=== PATIENT | female | born 1995 | race Caucasian/White ===

== ENCOUNTER 2018-12-10 14:48 | Inpatient (IN) | payer OTHER ==
[2018-12-10] MEDS ORDERED: Misoprostol 200 MCG TAB PR PRN (15:58)
[2018-12-10] MEDS ORDERED: Ondansetron PF 4 MG/2 ML Vial IVP PRN ×2 (15:58→23:55)
[2018-12-10] MEDS ORDERED: Acetaminophen 500 MG TAB PO PRN (15:58)
[2018-12-10] MEDS ORDERED: Diphenoxylate HCl/Atropine Tablet PO PRN ×2 (15:58)
[2018-12-10] MEDS ORDERED: NS / Oxytocin 40 units/1000ml 1,000 ML IV PRN (15:58)
[2018-12-10] MEDS ORDERED: Lidocaine 1% (PF) 30 ML VIAL SC PRN (15:58)
[2018-12-10] MEDS ORDERED: HYDROcodone/Acetaminophen 5/325 mg Tablet PO PRN ×2 (15:58)
[2018-12-10] MEDS ORDERED: Ibuprofen 800 MG TAB PO PRN (15:58)
[2018-12-10] MEDS ORDERED: Docusate 100 MG CAP PO PRN (15:58)
[2018-12-10] MEDS ORDERED: NS w/ Oxytocin 10 units 500 ML IV SCH (15:58)
[2018-12-10] MEDS ORDERED: Misoprostol 100 MCG TAB VAG SCH (15:58)
[2018-12-10] MEDS ORDERED: Promethazine HCl 25 MG/ML VIAL IM PRN ×2 (15:58→23:55)
[2018-12-10] MEDS: Lactated Ringer's 1,000 ML IV SCH ×2 (16:00→19:15)
[2018-12-10] MEDS ORDERED: NS w/ Oxytocin 10 units 500 ML ONE (16:04)
[2018-12-10 16:10] LABS: Hemoglobin 11.8 g/dL (12.0-16.0); Mean Corpuscular HGB CONC 34.2 g/dL (32.0-36.0); Mean Corpuscular Hemoglobin 31.2 pg (27.0-31.0); Mean Corpuscular Volume 91.3 fL (78.0-98.0); Mean Platelet Volume 6.9 fL (7.4-10.4); Platelet Count 242 thou/uL (130-400); RBC Distribution Width 13.6 % (11.5-14.5); Red Blood Cell (RBC) Count 3.77 mill/uL (4.20-5.40); White Blood Cell (WBC) Count 8.2 thou/uL (4.8-10.8)
[2018-12-10 16:22] VITALS: BMI 27.9
[2018-12-10 16:47] LABS: Syphilis Antibody Nonreactive (Nonreactive); Syphilis Antibody Index 0.04 S/CO (<1.00 Non-Reactive)
[2018-12-10 16:48] LABS: HBSAg Index 0.28 S/CO (0-0.99); Hep B Surf Ag Non-Reactive S/CO (NonReactive)
[2018-12-10 19:49] LABS: Amphetamine Not Detected (NotDetected); Barbiturates Screen Not Detected (NotDetected); Benzodiazepine Screen Not Detected (NotDetected); Cocaine Metabolite Screen Not Detected (NotDetected); Medtox Control Line Valid? VALID (VALID); Medtox Reader # READER 4; Methadone Not Detected (NotDetected); Methamphetamine Not Detected (NotDetected); Opiate Screen Not Detected (NotDetected); Oxycodone Screen Not Detected (NotDetected); Phencyclidine (PCP) Not Detected (NotDetected); THC/Cannabinoid Screen Not Detected (NotDetected); Tricyclic Screen Not Detected (NotDetected)
[2018-12-10] MEDS: Butorphanol Tartrate 1 MG/ML VIAL SLOW IVP PRN ×2 (19:53→22:22)
[2018-12-10] MEDS ORDERED: Fentanyl 4 mcg/Bup 0.1% Cadd 100 ML ONE (23:30)
[2018-12-10] MEDS ORDERED: Communication Order-Pharmacy FS SCH (23:45)
[2018-12-10] MEDS ORDERED: Fentanyl 4 mcg/Bupivacaine 0.1% Cassette 100 ML EPIDURAL SCH (23:45)
[2018-12-10] MEDS ORDERED: ePHEDrine/0.9% NaCl/PF SYRINGE 50 mg/10 ml SLOW IVP PRN (23:55)
[2018-12-10] MEDS ORDERED: Lactated Ringer's 500 ML IV PRN (23:55)
[2018-12-10] MEDS ORDERED: Naloxone HCl 0.4 mg/ml Vial IVP PRN ×2 (23:55)
[2018-12-10] MEDS ORDERED: Acetaminophen 325 MG TAB PO PRN (23:55)
[2018-12-10] MEDS ORDERED: Hydrocerin (Eucerin) Cream 120 gm Jar TOP PRN (23:55)
[2018-12-10] MEDS ORDERED: diphenhydrAMINE 50 MG/ML VIAL IVP PRN (23:55)
[2018-12-11] MEDS: Lactated Ringer's 1,000 ML IV SCH ×2 (00:03→05:14)
[2018-12-11] MEDS ORDERED: Fentanyl 4 mcg/Bup 0.1% Cadd 100 ML ONE (06:11)
[2018-12-11] MEDS ORDERED: Adacel (T-DAP) 0.5 ML SYRINGE IM ONE (07:10)
[2018-12-11] MEDS ORDERED: Milk Of Magnesia 30 ML UDCUP PO PRN (07:10)
[2018-12-11] MEDS ORDERED: Benzocaine-Menthol 82.5 ML CAN TOP PRN (07:10)
[2018-12-11] MEDS ORDERED: Misoprostol 200 MCG TAB VAG PRN (07:10)
[2018-12-11] MEDS ORDERED: Preparation H Ointment 28 GM TUBE PR PRN (07:10)
[2018-12-11] MEDS ORDERED: Bisacodyl 10 MG SUPP PR PRN (07:10)
[2018-12-11] MEDS ORDERED: Zolpidem Tartrate 5 MG TAB PO PRN (07:10)
[2018-12-11] MEDS ORDERED: Ondansetron PF 4 MG/2 ML Vial IVP PRN (07:10)
[2018-12-11] MEDS ORDERED: Acetaminophen/Codeine 30-300mg Tablet PO PRN ×2 (07:10)
[2018-12-11] MEDS ORDERED: Lanolin Ointment 7 GM TUBE TOP PRN (07:10)
[2018-12-11] MEDS ORDERED: diphenhydrAMINE 25 MG CAP PO PRN (07:10)
[2018-12-11] MEDS ORDERED: NS / Oxytocin 40 units/1000ml 1,000 ML IV SCH (07:15)
[2018-12-11] MEDS: Docusate Calcium (SURFAK) 240 MG CAP PO SCH ×2 (12:00→21:52)
[2018-12-11] MEDS: Ferrous Sulfate 325 MG TAB PO SCH ×2 (12:00→17:55)
[2018-12-11] MEDS: Prenatal Vitamin 1 TAB PO SCH (12:00)
[2018-12-11] MEDS: Acetaminophen 325 MG TAB PO PRN (13:06)
[2018-12-12] MEDS: Acetaminophen 325 MG TAB PO PRN (00:20)
[2018-12-12 06:20] LABS: Hemoglobin 11.5 g/dL (12.0-16.0); Mean Corpuscular HGB CONC 32.7 g/dL (32.0-36.0); Mean Corpuscular Hemoglobin 30.7 pg (27.0-31.0); Mean Platelet Volume 7.1 fL (7.4-10.4); Platelet Count 224 thou/uL (130-400); RBC Distribution Width 13.8 % (11.5-14.5); Red Blood Cell (RBC) Count 3.74 mill/uL (4.20-5.40); White Blood Cell (WBC) Count 14.2 thou/uL (4.8-10.8)
[2018-12-12] MEDS: Docusate Calcium (SURFAK) 240 MG CAP PO SCH ×2 (10:24→20:39)
[2018-12-12] MEDS: Ferrous Sulfate 325 MG TAB PO SCH ×2 (10:24→19:16)
[2018-12-12] MEDS: Prenatal Vitamin 1 TAB PO SCH (10:24)
[2018-12-13] MEDS: Acetaminophen 325 MG TAB PO PRN ×2 (03:40→09:09)
[2018-12-13] MEDS: Ferrous Sulfate 325 MG TAB PO SCH (08:38)
[2018-12-13 08:57] VITALS: BP 107/69; TEMP 97.6
[2018-12-13] MEDS: Prenatal Vitamin 1 TAB PO SCH (09:08)
[2018-12-13] MEDS: Docusate Calcium (SURFAK) 240 MG CAP PO SCH (09:08)
== END 2018-12-13 10:30 | disposition home or self-care (01) | DRG 806 ==
LOC: EEVIPCON 14:48 → L&D 14:48 → 3SW 12-11 10:21
PROVIDERS: ADMIT Obstetrics & Gynecology; ATTEND Obstetrics & Gynecology
PROC: 10D07Z6 Extraction of Products of Conception, Vacuum, Via Natural or Artificial Opening (ICD-10-PCS; principal; 2018-12-10)
PROC: 0KQM0ZZ Repair Perineum Muscle, Open Approach (ICD-10-PCS; 2018-12-10)
PROC: 3E0P7VZ Introduction of Hormone into Female Reproductive, Via Natural or Artificial Opening (ICD-10-PCS; 2018-12-10)
PROC: 3E033VJ Introduction of Other Hormone into Peripheral Vein, Percutaneous Approach (ICD-10-PCS; 2018-12-10)
DX: O36.5930 Maternal care for other known or suspected poor fetal growth, third trimester, not applicable or unspecified (principal); O99.324 Drug use complicating childbirth; Z37.0 Single live birth; F19.90 Other psychoactive substance use, unspecified, uncomplicated; O99.334 Smoking (tobacco) complicating childbirth; O69.81X0 Labor and delivery complicated by cord around neck, without compression, not applicable or unspecified; O76 Abnormality in fetal heart rate and rhythm complicating labor and delivery; O70.1 Second degree perineal laceration during delivery; Z3A.38 38 weeks gestation of pregnancy; Z88.6 Allergy status to analgesic agent
CPT/HCPCS: 36415; 51702; 80306; 85027; 86780; 86850; 86900; 86901; 87340; 99285; J0595; J2001; J2590

== ENCOUNTER 2020-09-15 11:08 | Emergency (ER) | payer SELFPAY ==
[2020-09-15] MEDS ORDERED: Acetaminophen 500 MG TAB ONE (11:45)
[2020-09-15] MEDS ORDERED: Clindamycin/D5W 900 mg/50 ml Premix Bag ONE (11:45)
== END 2020-09-15 13:00 | disposition home or self-care (01) ==
LOC: ERS 11:08
DX: L03.011 Cellulitis of right finger (principal); F17.210 Nicotine dependence, cigarettes, uncomplicated
CPT/HCPCS: 96365; J3490

== ENCOUNTER 2021-05-08 17:54 | Emergency (ER) | payer SELFPAY | END 2021-05-08 20:00 | disposition left against medical advice (07) | LOC: ERS 17:54 | DX: Z53.21 Procedure and treatment not carried out due to patient leaving prior to being seen by health care provider (principal) ==

== ENCOUNTER 2021-08-25 11:30 | Emergency (ER) | payer OTHER ==
[2021-08-25] MEDS ORDERED: Iopamidol 370 76% 100 ML VIAL ONE (11:53)
[2021-08-25 12:06] LABS: Hemoglobin 11.4 g/dL (12.0-16.0); Mean Corpuscular HGB CONC 31.7 g/dL (32.0-36.0); Mean Corpuscular Hemoglobin 25.7 pg (27.0-31.0); Mean Platelet Volume 5.9 fL (7.4-10.4); Platelet Count 508 thou/uL (130-400); RBC Distribution Width 16.2 % (11.5-14.5); Red Blood Cell (RBC) Count 4.42 mill/uL (4.20-5.40); White Blood Cell (WBC) Count 26.2 thou/uL (4.8-10.8)
[2021-08-25 12:27] LABS: Anisocytosis SLIGHT = 6-15 cells (100X) (0-5/hpf); Band 18 % (5-11); Hypochromia SLIGHT = 6-15 cells (100X) (0-5/hpf); Lymphocytes 7 % (21-51); MDiff Complete? YES; Monocytes 7 % (0-10); Neutrophil 67 % (42-75); Platelet Morphology Comment Appears Increased; Polychromasia SLIGHT = 2-3 cells (100X) (0-2/hpf); Reactive Lymphocytes 1 % (0-10)
[2021-08-25 12:28] LABS: ALT (SGPT) 28 U/L (8-55); AST (SGOT) 11 U/L (5-34); Albumin 3.6 g/dL (3.5-5.0); Alkaline Phosphatase 152 U/L (40-110); Anion Gap 15 mmol/L (10-20); BUN (Urea Nitrogen) 8 mg/dL (7.0-18.7); Bilirubin, Total 0.4 mg/dL (0.2-1.2); Calc. Creatinine Clearance 0 mL/min (70-130); Carbon Dioxide 20 mmol/L (22-29); Chloride 102 mmol/L (98-107); Globulin 3.2 g/dL (2.4-3.5); Glucose 147 mg/dL (70-105); Potassium 3.7 mmol/L (3.5-5.1); Protein, Total 6.8 g/dL (6.0-8.3); Sodium 133 mmol/L (136-145)
[2021-08-25] MEDS ORDERED: Piperacillin/Tazobactam 4.5 GM VIAL ONE (12:37)
[2021-08-25 12:54] LABS: Bilirubin Negative (Negative); Blood, Urine Negative (Negative); Clarity Clear (Clear); Glucose, Urine (Dipstick) Normal (Negative); Ketone, Urine Negative (Negative); Leukocyte 500 Leu/uL (Negative); Nitrite Negative (Negative); Protein, Urine (Dipstick) Negative (Neg-Trace); RBC/HPF 0-3 HPF (0-3); Specific Gravity, Urine 1.008 (1.002-1.036); Squamous Epithelial 0-3 HPF (0-3); Urobilinogen Normal mg/dL (Less than 2)
[2021-08-25 12:59] LABS: Bacteria/HPF 1+ HPF (None Seen)
[2021-08-25] MEDS ORDERED: Vancomycin 1 GM/200 ML BAG ONE (13:57)
[2021-08-25 14:58] LABS: Lactic Acid 1.4 mmol/L (0.5-2.2)
[2021-08-25 15:43] LABS: SARS-CoV-2 NAA Rapid Test DETECTED (NotDetected)
[2021-08-26 15:25] LABS: Chlamydia by PCR Not Detected (NotDetected); GC by PCR Not Detected (NotDetected)
== END 2021-08-25 16:20 | disposition short-term general hospital (02) ==
LOC: ERS 11:30
DX: A41.89 Other specified sepsis (principal); U07.1 COVID-19; F17.210 Nicotine dependence, cigarettes, uncomplicated
CPT/HCPCS: 36415; 71045; 74177; 80053; 81003; 81015; 83605; 85025; 87040; 87070; 87077; 87086; 87480; 87491; 87510; 87591; 87660; 87804; 93005; 96365; 96366; 96368; J2543; J3370; Q9967; U0002